=== PATIENT | male | born 1995 | race Caucasian/White ===

== ENCOUNTER 2020-04-04 10:45 | Emergency (ER) | payer SELFPAY ==
[2020-04-04 10:56] VITALS: BP 145/73; PULSE 73; RESP 16; TEMP 36.6; O2SAT 99; BMI 23.7
[2020-04-04 11:00] VITALS: BP 145/73; PULSE 80; RESP 16; O2SAT 98
--- NOTE | 2020-04-04 11:18 | CT_ITS ---
WS: [id number] CT NECK WITH CONTRAST HISTORY: trismus TECHNIQUE: Contiguous 5 mm axial images are performed through the neck with intravenous contrast. Sag ittal and coronal reformats are also submitted. All CT scans at [facility] use at least o ne of these dose optimization techniques: automated exposure control; mA and/or kV adjustment per pat ient size (includes targeted exams where dose is matched to clinical indication); or iterative recons truction. CONTRAST: CONTRAST: Omnipaque 300; 95 mL IV. DLP: 561.86 mGy.cm COMPARISON: None available. Nasopharynx, oropharynx, hypopharynx and larynx are unremarkable. No soft tissue masses or abnormal e nhancement. Torus tubarius and fossa of Rosenmuller and parapharyngeal fat are normal. Increased soft tissue thickening around the RIGHT mandibular angle. This is asymmetric to the LEFT. T here is a tiny focus of air in the soft tissues, image 48 of series 3 along with 1.5 cm developing ab scess. Submandibular lymph nodes are enlarged bilaterally. The largest on the RIGHT measures 12 mm. Mildly h ypervascular. Ovoid shape is maintained and there is no necrosis. Smaller level 2 lymph nodes. 9 mm l evel 2A lymph node on the RIGHT. Thyroid gland and salivary glands are normally enhancing with no masses. No osseous abnormalities. Bilateral dental caries. Visualized portions of the skull base demonstrate no abnormalities. Orbits and globes are within norm al limits. No soft tissue masses. Visualized paranasal sinuses and mastoid air cells are normal. Lung apices are clear. CT/CT neck w con* [id number] IMPRESSION: 1. Bilateral enlarged submandibular lymph nodes. May be reactive due to their shape. 2. Inflammatory phlegmonous process surrounding the RIGHT mandibular angle and involving the masseter muscle. Suspect this is postinflammatory. Most signific ant inflammatory process measures 1.5 cm consistent with an incompletely develo ped abscess and a small adjacent focus of air. 3. Bilateral dental caries. Notified Guanakito Cm MD at 04/04/2020 12:30 PM.
--- NOTE | 2020-04-04 11:26 | ED_ITS ---
HPI - Dental/Oral General: Chief complaint: Dental/Oral Stated complaint: JAW PAIN Time Seen by Provider: 04/04/20 11:14 Source: patient Mode of arrival: ambulatory Limitations: no limitations History of Present Illness: HPI Narrative: 24-year-old male who states has been having right sided lower dental pain over the last week. He states over the last 3 to 4 days he has developed trismus. He is able to open his mouth but roughly only 1 finger opening. States he has pain to your rates a 7 out of 10. Denies any difficulty swallowing. Denies any worsening improving factors. He denies any fevers. He has a history of poor dentition. Associated symptoms: Denies fever(s) Review of Systems Const: Denies: fever(s), chills, body aches or change in appetite Eyes: Denies: blurry vision or eye discomfort ENMT: Reports: dental pain Card: Denies: chest pain Resp: Denies: dyspnea GI: Denies: abdominal pain, nausea, vomiting or diarrhea : Denies: dysuria Musc: Denies: neck pain or back pain Skin/Breast: Denies: rash Neuro: Denies: headache(s) Psych: Denies: depression Arjun/Lymph: Denies: easy bruising All/Imm: Denies: urticaria Physical Exam Const: COMMON NORMALS: no acute distress, patient oriented x3 and healthy appearing HENMT: COMMON NORMALS: normocephalic and atraumatic HEAD & SCALP: normocephalic and atraumatic OTHER: Poor dentition with erythema over right lower molars and gums. No abscess noted. Does have 1 finger trismus. Eye: COMMON NORMALS: Equal, round and reactive pupils present and EOMs intact bilaterally PUPIL: Yes Equal, round and reactive pupils present Neck/C-Spine: COMMON NORMALS: full ROM and supple Chest: COMMONS NORMALS: normal inspection of the chest and normal palpation of entire chest wall Resp: COMMON NORMALS: normal respiratory effort, No retractions, No use of accessory muscles and clear to auscultation bilaterally AUSCULTATION: clear to auscultation bilaterally Cardio: COMMON NORMALS: regular rate, regular rhythm and No murmurs present (Cardio) RATE: regular rate RHYTHM: regular rhythm GI: COMMON NORMALS: Normal to inspection, nondistended, normoactive bowel sounds present, Soft to palpation, non-tender and no masses PALPATION: Yes Soft to palpation Extremity: COMMON NORMALS: normal to inspection and full ROM Neuro: COMMON NORMALS: patient oriented x3, moves all extremities and no focal motor deficits Psych: COMMON NORMALS: mental status grossly normal, Normal thought process present and cooperative THOUGHT PROCESS: Normal thought process present Skin: COMMON NORMALS: no rashes or lesions noted and no wounds GENERAL SKIN EXAM: no rashes or lesions noted Course Vital Signs: Vital signs: Vital Signs Temperature 97.9 F 04/04/20 10:56 Pulse Rate 68 04/04/20 11:53 Respiratory Rate 14 04/04/20 11:53 Blood Pressure 122/72 04/04/20 11:53 Pulse Oximetry 99 04/04/20 11:53 MDM - Dental/Oral MDM Narrative: Medical decision making narrative: 24-year-old presents here with likely dental infection. He has no abscess at this time is likely developing abscess. I spoke to Dr. Willoughby maxillofacial facial surgeon and [place] and went over patient's labs and CT with him. He wanted to see patient in his office in 3 to 4 days. We will set up an appointment. Patient given IV antibiotics here and will place on antibiotics at home. He is to return if worsening. He is handling his secretions well. Lab Data: Labs: Lab Results 04/04/20 Range/Units 11:25 WBC 11.4 H (4.0-10.0) 10^3/ uL RBC 4.81 (4.1-5.3) 10^6/u L Hgb 14.7 (11.7-16.6) g/dL Hct 43.5 (42.0-52.0) % MCV 90.4 (80-94) fL MCH 30.6 (28.0-34.0) pg MCHC 33.8 (30.0-36.0) g/dL RDW 12.0 L (12.1-15.1) % Plt Count 283 (130-400) 10^3/c mm MPV 10.6 H (7.4-10.4) fL Neut % (Auto) 77.2 % Lymph % (Auto) 12.9 % [place] % (Auto) 8.2 % Eos % (Auto) 1.1 % Baso % (Auto) 0.3 % Neut # (Auto) 8.79 H (1.8-7.7) 10^3/u L Lymph # (Auto) 1.5 (0.8-4.8) 10^3/u L [place] # (Auto) 0.9 (0.2-0.9) 10^3/u L Eos # (Auto) 0.1 (0.0-0.8) 10^3/u L Baso # (Auto) 0.0 (0.0-0.1) 10^3/u L Nucleated RBC % (a uto) 0 % Nucleated RBCs # 0.0 /100WBC Imaging Data^: Other CT: Attestation: I personally reviewed and interpreted this imaging study as fo llows: Radiologist's impression: [place] [address] CT Scan Report Signed Patient: Dinesh Mahan Unit #: [id number] : 1995 Age/Sex: 24 / M ADM Date: 04/04/20 Loc: ER Room/Bed: Attending Dr: Ordering Provider/Ordering MD: Guanakito Cm MD Date of Service: 04/04/20 Procedure(s): CT neck w con* [id number] Accession Number(s): [id number] Report Number: [id number] WS: [id number] CT NECK WITH CONTRAST HISTORY: trismus TECHNIQUE: Contiguous 5 mm axial images are performed through the neck with intravenous contrast. Sagittal and coronal reformats are also submitted. All CT scans at [facility] use at least one of these dose optimization techniques: automated exposure control; mA and/or kV adjustment per patient size (includes targeted exams where dose is matched to clinical indication); or iterative reconstruction. CONTRAST: CONTRAST: Omnipaque 300; 95 mL IV. DLP: 561.86 mGy.cm COMPARISON: None available. Nasopharynx, oropharynx, hypopharynx and larynx are unremarkable. No soft tissue masses or abnormal enhancement. Torus tubarius and fossa of Rosenmuller and parapharyngeal fat are normal. Increased soft tissue thickening around the RIGHT mandibular angle. This is asymmetric to the LEFT. There is a tiny focus of air in the soft tissues, image 48 of series 3 along with 1.5 cm developing abscess. Submandibular lymph nodes are enlarged bilaterally. The largest on the RIGHT measures 12 mm. Mildly hypervascular. Ovoid shape is maintained and there is no necrosis. Smaller level 2 lymph nodes. 9 mm level 2A lymph node on the RIGHT. Thyroid gland and salivary glands are normally enhancing with no masses. No osseous abnormalities. Bilateral dental caries. Visualized portions of the skull base demonstrate no abnormalities. Orbits and globes are within normal limits. No soft tissue masses. Visualized paranasal sinuses and mastoid air cells are normal. Lung apices are clear. CT/CT neck w con* [id number] IMPRESSION: 1. Bilateral enlarged submandibular lymph nodes. May be reactive due to their shape. 2. Inflammatory phlegmonous process surrounding the RIGHT mandibular angle and involving the masseter muscle. Suspect this is postinflammatory. Most significant inflammatory process measures 1.5 cm consistent with an incompletely developed abscess and a small adjacent focus of air. 3. Bilateral dental caries. Discharge Plan Discharge Patient Disposition: Home Clinical Impression: Dental caries, Trismus Condition: Stable Prescriptions: [place] 5-325 mg tablet 1 tab PO Q6H PRN (Reason: pain) Qty: 14 RF: 0 ondansetron 4 mg tablet,disintegrating 4 mg PO Q6H PRN (Reason: nausea and vomiting) Qty: 14 RF: 0 Flagyl 500 mg tablet 500 mg PO Q8H 7 Days Qty: 21 RF: 0 amoxicillin 500 mg tablet 500 mg PO TID 10 Days Qty: 30 RF: 0 No Action aspirin 325 mg Tablet 325 - 650 mg PO PRN RF: 0 [place] 5-325 mg Tablet See Rx Instructions .ROUTE .COMPLEX RF: 0 Tylenol Extra Strength 500 mg Tablet 1,000 mg PO PRN RF: 0 ibuprofen 200 mg Tablet 600 mg PO PRN RF: 0 Discharge Orders: Discharge Order (Routine); Ordered 04/04/20 Ordered By: Guanakito Cm Referrals: alden garcia [Other] Discharge Diet: Advance as tolerated Discharge Activity: Resume usual activity Patient Instructions: Dental Caries (ED) Coding Level of Care Code ED Job Site Supervisor for Chg Fwd Exam Comprehensive
[2020-04-04 11:32] LABS: Basophils % 0.3 %; Eosinophils # 0.1 10^3/uL (0.0-0.8); Eosinophils % 1.1 %; Hematocrit 43.5 % (42.0-52.0); Hemoglobin 14.7 g/dL (11.7-16.6); Lymphocytes # 1.5 10^3/uL (0.8-4.8); Lymphocytes % 12.9 %; Mean Corpuscular HGB Conc 33.8 g/dL (30.0-36.0); Mean Corpuscular Hemoglobin 30.6 pg (28.0-34.0); Mean Corpuscular Volume 90.4 fL (80-94); Mean Platelet Volume 10.6 fL (7.4-10.4); Monocytes # 0.9 10^3/uL (0.2-0.9); Monocytes % 8.2 %; Neutrophils # 8.79 10^3/uL (1.8-7.7); Neutrophils % 77.2 %; Nucleated Red Blood Cells % 0 %; Platelet Count 283 10^3/cmm (130-400); Red Blood Count 4.81 10^6/uL (4.1-5.3); White Blood Count 11.4 10^3/uL (4.0-10.0)
[2020-04-04] MEDS: morphine 4 mg/mL SDV 1 mL IVP (11:50)
[2020-04-04] MEDS: ondansetron 2 mg/ML SDV 2 mL 4 MG IVP (11:50)
[2020-04-04] MEDS: dexamethasone 10 mg/mL INJ IVP (11:50)
[2020-04-04] MEDS: sodium chloride 0.9% 500 ML IV (11:51)
[2020-04-04] MEDS: clindamycin 900 MG/50 ML PREMIX 100 MG IV (11:51)
[2020-04-04 11:53] VITALS: BP 122/72; PULSE 68; RESP 14; O2SAT 99
--- NOTE | 2020-04-04 12:10 | PC.NURSE ---
received report form vianney ashraf assumed care.
[2020-04-04] MEDS: iohexol 300 mg/mL 100 mL Btl IV (12:11)
[2020-04-04 13:00] VITALS: BP 120/70; PULSE 63; RESP 16; O2SAT 97
--- NOTE | 2020-04-04 14:38 | DCPLANNER ---
Addendum entered by Mary Noble 04/05/20 10:50: manager gaming called patient at 8:30 on 04.05.20 and again at 10:50 at phone number [phone] to let patient know of scheduled appointment. manager gaming unable to speak with patient and unable to leave voicemail for patient. manager gaming also called patients mother and left voicemails for patient to return leather case finisher phone call for appointment information. Original Note: manager gaming was asked to schedule a follow up appointment for patient with [facility] in [place]. manager gaming called [facility], a follow up appointment was scheduled for April at 8:[address] Arango. manager gaming was asked to tell patient that when he attends the appointment he needs to the following: Be fasting in case the clinic does anything Have a certified driver examiner in case the clinic does anything Fire Pot Operator will have to wait in the car until patient is done with visit Patient will need to wear a mask Patient will need to take disc with him manager gaming faxed patients records to the clinic. manager gaming called patient to inform patient that he would need be fasting, have a certified driver examiner, wear a mask. manager gaming called [phone], unable to speak with patient and unable to leave voicemail for patient. manager gaming also called [phone], left a voicemail at this number for patient to call case management assistant back.
--- NOTE | 2020-05-03 15:33 | DCPLANNER ---
Patient had a follow up appointment scheduled for 04.06.20 with [facility] - patient did attend appointment.
== END 2020-04-04 13:27 | disposition home or self-care (01) ==
PROVIDERS: Emergency Provider Emergency Medicine
DX: K02.9 Dental caries, unspecified (principal); R25.2 Cramp and spasm; Z79.82 Long term (current) use of aspirin
CPT/HCPCS: 12345; 36415; 70491; 85025; 96365; 96375; 99283; J1100; J2270; J2405; J3490; J7040; Q9967